=== PATIENT | female | born 1980 | race Caucasian/White ===

== ENCOUNTER 2017-03-28 06:30 | Day surgery (SDC) | payer OTHER | END 2017-03-28 17:25 | disposition home or self-care (01) | LOC: CIR.AMB 06:30 | DX: N60.41 Mammary duct ectasia of right breast (principal); N60.91 Unspecified benign mammary dysplasia of right breast ==

== ENCOUNTER 2017-09-05 06:09 | Day surgery (SDC) | payer OTHER | END 2017-09-05 10:20 | disposition home or self-care (01) | LOC: CIR.AMB 06:09 | DX: O02.1 Missed abortion (principal); Z3A.01 Less than 8 weeks gestation of pregnancy ==

== ENCOUNTER 2019-02-02 10:47 | Emergency (ER) | payer OTHER ==
[~2019-02-02] VITALS: Ht 149.9 cm; Wt 49.9 kg
== END 2019-02-02 11:42 | disposition home or self-care (01) ==
LOC: ER 10:47
DX: K04.7 Periapical abscess without sinus (principal)

== ENCOUNTER 2020-05-28 15:14 | Emergency (ER) | payer OTHER ==
[~2020-05-28] VITALS: Ht 149.9 cm; Wt 54.4 kg
[2020-05-28] MEDS ORDERED: SYNTHROID50 MCG PO (15:26)
== END 2020-05-28 17:55 | disposition home or self-care (01) ==
LOC: ER 15:14
DX: R53.81 Other malaise (principal); R51.9 Headache, unspecified; T50.Z95A Adverse effect of other vaccines and biological substances, initial encounter

== ENCOUNTER 2020-10-27 10:36 | Outpatient (CLI) | payer OTHER ==
[~2020-10-27 10:36] MED LIST: SYNTHROID50 MCG PO
== END 2020-10-27 10:47 | disposition home or self-care (01) ==
LOC: SONOGRAMA 10:36 → MAMO-SONO 14:45
PROVIDERS: ATTEND Internal Medicine Endocrinology, Diabetes & Metabolism
DX: E04.1 Nontoxic single thyroid nodule (principal)

== ENCOUNTER 2021-11-09 03:27 | Emergency (ER) | payer OTHER ==
[~2021-11-09] VITALS: Ht 152.4 cm; Wt 59.0 kg
== END 2021-11-09 08:57 | disposition home or self-care (01) ==
LOC: ER 03:27
DX: R42 Dizziness and giddiness (principal); Z88.0 Allergy status to penicillin; Z88.6 Allergy status to analgesic agent; R51.9 Headache, unspecified; R11.0 Nausea

== ENCOUNTER 2022-07-19 11:10 | Emergency (ER) | payer OTHER ==
[~2022-07-19] VITALS: Ht 152.4 cm; Wt 61.2 kg
== END 2022-07-19 15:13 | disposition home or self-care (01) ==
LOC: ER 11:10
DX: J10.1 Influenza due to other identified influenza virus with other respiratory manifestations (principal); Z88.6 Allergy status to analgesic agent; Z88.0 Allergy status to penicillin; Z20.822 Contact with and (suspected) exposure to COVID-19

== ENCOUNTER → 2023-03-07 | Outpatient (CLI) | payer OTHER | END | disposition home or self-care (01) | LOC: SONOGRAMA 07:26 | PROVIDERS: ATTEND Internal Medicine Endocrinology, Diabetes & Metabolism | DX: E04.8 Other specified nontoxic goiter (principal) ==

== ENCOUNTER 2023-05-27 12:27 | Emergency (ER) | payer OTHER ==
[~2023-05-27] VITALS: Ht 152.4 cm; Wt 59.4 kg
[2023-05-27] MEDS ORDERED: PAXIL20 MG (13:00)
[2023-05-27] MEDS ORDERED: DEXAMETHASONE SODIUM PHOSPHATE 4 MG/ML VIAL IM STA (13:37)
== END 2023-05-27 14:13 | disposition home or self-care (01) ==
LOC: ER 12:27
DX: R07.89 Other chest pain (principal); Z88.6 Allergy status to analgesic agent; Z88.0 Allergy status to penicillin

== ENCOUNTER 2024-05-20 09:09 | Outpatient (CLI) | payer OTHER ==
[~2024-05-20 09:09] MED LIST changes: +PAXIL20 MG
== END 2024-05-20 09:12 | disposition home or self-care (01) ==
LOC: NUCLEAR 09:09
PROVIDERS: ATTEND Internal Medicine Endocrinology, Diabetes & Metabolism
DX: I50.20 Unspecified systolic (congestive) heart failure (principal)